=== PATIENT | male | born 1970 | race Caucasian/White ===

== ENCOUNTER 2017-01-22 16:42 | Inpatient (IN) | payer BC ==
--- NOTE | ~2017-01-22 | HP ---
History And Physical [address] [address] NAME: ALYSA DUONG : 74 STATUS : ADM IN [facility]#: [id number] AGE: 46 ADM/REG DATE : 01/22/17 MR#: [id number] REPORT SERV DATE: 01/23/17 DICTATED BY: DANICA RUIZ DATE: 01/22/17 REPORT STATUS : Draft TRANSCRIBED BY: MODL DATE: 01/22/17 DATE OF ADMISSION: 01/22/2017 CHIEF COMPLAINT: Sore throat, and chest pain. HISTORY OF PRESENT ILLNESS: This is a 46-year-old male patient, who came to the hospital at [facility] [place] with three days of sore throat, and he is getting weaker and he started having chest pain started this morning and he went to seek medical attention. He said he had a left-sided sternal pain like somebody was sitting there, it stayed all day long and eased off finally from the medication from the emergency room at the [facility]. He tried to do the nitroglycerin, it did not help. He states he was nauseated and it is not any more and also the pain start to go to the left arm and left jaw. He denies any aggravation or alleviating factors. That is the reason [facility] [place] transferred this patient to get further evaluation for the cardiac michel. According to the evaluation from the [facility], his BNP was 18. His x-ray was negative and his strep test was negative. Currently, he is not complaining any chest pain, and he is not having any palpitation or short of breath. He felt like a little tightness when he would take a deep breath. He denies any fever. His transfer was accepted by Dr. Mireles and I am taking care of this patient for the first visit H and P. REVIEW OF SYSTEMS: All systems reviewed and negative. PAST MEDICAL HISTORY: 1. Chronic pain management after the back surgery. The patient states he takes oxycodone 10 mg; however, his urine drug screen was negative. 2. Light heart attack in 2013 that was treated at the [facility]. He does not have enough detailed history about this event. He thinks he had a cardiac cath. 3. Broken vertebrae and spinal fusion. PAST SURGICAL HISTORY: Spinal fusion, three bones. SOCIAL HISTORY: Denies smoking history. Denies any alcohol use. 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 ALLERGIES: MORPHINE MADE HIM HALLUCINATION. HOME MEDICATIONS: 1. Lisinopril 20 mg once a day. 2. Oxycodone 10/325 mg four times a day. 3. Lyrica 200 mg twice a day. History And Physical [address] [address] NAME: ALYSA DUONG : 74 STATUS : ADM IN PAT#: [id number] AGE: 46 ADM/REG DATE : 01/22/17 MR#: [id number] REPORT SERV DATE: 01/23/17 DICTATED BY: DANICA RUIZ DATE: 01/22/17 REPORT STATUS : Draft TRANSCRIBED BY: RADHA DATE: 01/22/17 4. Flexeril 10 mg three times a day. 5. Nitroglycerin as needed. PHYSICAL EXAMINATION: VITAL SIGNS: Blood pressure 147/88, pulse was 94, temperature was 98, saturation was 96% on room air, and respiratory rate 20. GENERAL APPEARANCE: He is alert, awake, not in acute distress, male patient. HEENT: Pupils are equal, round, and reactive to light. EOM are intact. NECK: There is no jugular venous distention. No nodes palpable. LUNGS: Clear to auscultation. Has a normal respiratory effort. Has some rhonchi in upper lobes on both sides. CARDIOVASCULAR: No murmur, rub, or gallop. Has a regular rhythm and rate. ABDOMEN: Bowel sounds present and soft. There is no tenderness or rebound tenderness. EXTREMITIES: There is no pitting edema. LABORATORY DATA: Laboratory from the [facility] showed a sodium of 139, potassium 4.4, chloride 100, bicarb 29, BUN 12, creatinine 0.8, and glucose 127. WBC of 14.2, hemoglobin 14, hematocrit 42.5, and platelet is 255. Electrocardiogram from the [facility] showed normal sinus rhythm. Slightly tachycardic. ASSESSMENT AND PLAN: 1. Atypical chest pain. 2. Allergic rhinitis/reactive airway disease. 3. Chronic pain management. 4. Hypertension. We are going to obtain a nuclear stress test and then put him on the bronchodilator treatment, more likely the patient will have fast recovery from this hospitalization. WERO/RADHA Danica Ruiz M.D. / [id number] CC: Shashank Mireles Jr, MD
--- NOTE | ~2017-01-22 | DS ---
Discharge Summary [facility] [address] [place]. [address] NAME: ALYSA DUONG : 74 STATUS : DIS IN PAT#: [id number] AGE: 46 ADM/REG DATE : 01/22/17 MR#: [id number] REPORT SERV DATE: 01/26/17 DICTATED BY: PAM REZA DATE: 01/25/17 REPORT STATUS : Draft TRANSCRIBED BY: MODL DATE: 01/25/17 ADMISSION DATE: 01/22/2017 DISCHARGE DATE: 01/25/2017 DISCHARGE DIAGNOSES: 1. Noncardiac chest pain, improved. 2. Allergic rhinitis and reactive airway disease, improved. 3. Chronic pain. 4. Hypertension, metoprolol was added. CONSULTANTS: Shashank Anguiano M.D. PROCEDURE: Cardiac catheterization today was negative. HISTORY OF PRESENT ILLNESS: This is a 46-year-old male patient, who came to the hospital with chest pain. Please see dictated H and P. HOSPITAL COURSE: He was admitted to the hospital with chest pain, had evaluation. Initially, the patient was thought to have allergic rhinitis and later chest tightness. However, his second troponin went up to 0.1 from less than 0.02. Therefore, Cardiology was consulted and they decided to go to cardiac cath. He waited a cardiac cath for weekend. And did not have any other episodes anymore. His electrocardiogram has been in sinus rhythm, and biomarker troponins has been negative. He had a cardiac catheterization today. It did not show any significant obstructive disease. There was a normal coronary structure. Therefore, the patient will be discharged to home and continue hypertensive medication and going back to primary care physician's care. DISCHARGE MEDICATIONS: Same as home medication, but metoprolol was added on this admission for hypertension control. EKL/MODL Pam Reza M.D. / [id number] CC: Pam Reza M.D.
--- NOTE | ~2017-01-22 | CN ---
Consultation Report [facility] [address] [place]. [address] NAME: ALYSA HARDING : 74 STATUS : ADM IN [facility]#: [id number] AGE: 46 ADM/REG DATE : 01/22/17 MR#: [id number] REPORT SERV DATE: 01/25/17 DICTATED BY: SHASHANK KESSLER DATE: 01/23/17 REPORT STATUS : Draft TRANSCRIBED BY: MODCorie DATE: 01/23/17 CARDIOLOGY CONSULTATION DATE OF CONSULTATION: 01/23/2017 REASON FOR CONSULTATION: Chest pain. HISTORY OF PRESENT ILLNESS: Mr. Harding is a 46-year-old man with reported history of coronary atherosclerosis and chronic back pain as well as hypertension. He reports intermittent chest pain for many years. He reports an arteriogram several years ago at [place] suggesting a 40% lesion. He has had recurrent chest pain since that time with emergency room presentations. He presented to the [facility] with sore throat and chest pain. He was evaluated and treated there. They recommended admission, but [facility] was full, and he was sent here for evaluation. His chest pain is substernal, it is pressure type sensation. It was not improved with nitroglycerin. He has some associated nausea. His initial troponin was normal but has increased slightly. The family also reports a significant fatigue. He falls asleep easily, and based on history, has a high likelihood of having sleep apnea given regular snoring and stopping and breathing when he is sleeping. The review of systems is as per the history of present illness. Ten other systems are negative. PAST MEDICAL HISTORY: 1. Coronary atherosclerosis based on history with previous arteriogram with a 40% lesion in unknown vessel. 2. Chronic back pain with spinal fusion in the past. 3. Hypertension. FAMILY HISTORY: Positive for heart disease. SOCIAL HISTORY: The patient is disabled. No smoking tobacco but does chew tobacco. No alcohol. ALLERGIES: NO KNOWN DRUG ALLERGIES. HOME MEDICATIONS: Aspirin 81 daily, lisinopril 20 daily, nitroglycerin, Endocet, Lyrica. PHYSICAL EXAMINATION: VITAL SIGNS: Heart rate 77, blood pressure 114/58. GENERAL: The patient is a pleasant white male, in no apparent distress. HEENT: Conjunctivae are anicteric, no xanthelasma, lips without cyanosis. NECK: Supple, normal JVP, carotids +2 without bruit. LUNGS: Clear to auscultation bilaterally, no wheezes, rales or rhonchi. CARDIOVASCULAR: Regular rate and rhythm. Normal S1 and S2 without S3. No murmur or rub. Consultation Report [facility] [address] [place]. [address] NAME: ALYSA HARDING : 74 STATUS : ADM IN PAT#: [id number] AGE: 46 ADM/REG DATE : 01/22/17 MR#: [id number] REPORT SERV DATE: 01/25/17 DICTATED BY: SHASHANK KESSLER DATE: 01/23/17 REPORT STATUS : Draft TRANSCRIBED BY: MODL DATE: 01/23/17 PMI is nondisplaced. ABDOMEN: Soft, nontender, nondistended, with normal bowel sounds. No hepatomegaly. EXTREMITIES: No clubbing, cyanosis or edema. NEURO/PSYCH: Alert and oriented to person, place and time. No obvious neurologic deficits. Mood and affect normal. DATA: Troponin initially 0.02 increasing to 0.13, creatinine is normal. White blood cell count 14.2. EKG shows no acute changes. IMPRESSION: 1. Chest pain with mixed anginal features. 2. Reported history of coronary atherosclerosis. 3. Borderline elevated troponin. 4. Likely sleep apnea. 5. Hypertension. RECOMMENDATIONS: Mr. Harding presents with recurrent chest pain syndrome. My guess is that lot of his chest pain is noncardiac but it is hard to completely evaluate him based on his history. His troponins are mildly elevated, and I think given his history with recurrent chest pain and reported coronary atherosclerosis, an arteriogram is the best way to sort out his symptoms and to make sure he does not have a significant lesion or that this is unstable angina. We will proceed with that on Wednesday for evaluation. I think he certainly needs a sleep apnea evaluation given falling asleep easily and even while driving recently. WO/MODL Shashank Kessler M.D., Ph.D, F.A.C.C. / [id number] CC: Shashank Mireles Jr,
[2017-01-22] MEDS ORDERED: ENDOCET1 TA3 PO (18:31)
[2017-01-22] MEDS ORDERED: LYRICA200 MG PO (18:32)
[2017-01-22] MEDS ORDERED: PRIN20 PO (18:33)
[2017-01-22] MEDS ORDERED: NITROSTAT0.4 MG SL (18:34)
[2017-01-22] MEDS ORDERED: ASAB PO (18:34)
[2017-01-24 04:57] LABS: PROTIME (NOT ORD) 12.7 SEC (12.0-14.5)
[2017-01-24 05:05] LABS: BUN (BLOOD UREA NITROGEN) 17 MG/DL (6-23); CALCIUM, SERUM 8.6 MG/DL (8.5-10.4); CHLORIDE, SERUM 114 MMOL/L (96-112); CO2 (CARBON DIOXIDE) 25 MMOL/L (24-34); CREATININE 0.84 MG/DL (0.70-1.30); GFR AFRICAN AMERICAN 123 ML/MIN (>=60); GFR NON AFRICAN AMERICAN 106 ML/MIN (>=60); GLUCOSE, SERUM 170 MG/DL (60-99); POTASSIUM, SERUM 3.6 MMOL/L (3.5-5.3); SODIUM, SERUM 148 MMOL/L (135-148); TROPONIN I <0.02 NG/ML (<0.05)
[2017-01-25 06:30] LABS: BASOPHILS 0.4 %; BASOPHILS ABSOLUTE 0.05 10/3/uL (0.0-0.16); EOSINOPHILS 2.4 %; EOSINOPHILS ABSOLUTE 0.33 10/3/uL (0.0-0.53); HEMATOCRIT 41.5 % (40.0-51.0); HEMOGLOBIN 13.6 g/dL (13.6-17.8); IMMATURE GRANULOCYTES 1.7 %; IMMATURE GRANULOCYTES ABSOLUTE 0.23 10/3/uL (0.0-0.11); MEAN CORPUS HGB CONC 32.8 g/dL (32.0-36.0); MEAN CORPUSCULAR HEMOGLOB 28.6 pg (26.0-34.0); MEAN CORPUSCULAR VOLUME 87.2 fL (80-100); MONOCYTES ABSOLUTE 0.94 10/3/uL (0.21-1.20); NEUTROPHILS 54.5 %; NEUTROPHILS ABSOLUTE 7.37 10/3/uL (2.02-8.40); PLATELET COUNT 241 10/3/uL (150-400); RBC DISTRIBUTION WIDTH 14.4 % (12.0-16.0); RED CELL COUNT 4.76 10/6/uL (4.7-6.1); WHITE BLOOD CELLS 13.5 10/3/uL (4.5-10.5)
[2017-01-25 06:38] LABS: MANUAL DIFF NO %; PROTIME (NOT ORD) 13.3 SEC (12.0-14.5)
[2017-01-25 06:46] LABS: CALCIUM, SERUM 8.4 MG/DL (8.5-10.4); CHLORIDE, SERUM 111 MMOL/L (96-112); CHOL/HDL RATIO(NOT ORDER) 1.6 (0-5); CHOLESTEROL 118 MG/DL (< 200); CO2 (CARBON DIOXIDE) 27 MMOL/L (24-34); CREATININE 0.88 MG/DL (0.70-1.30); GFR AFRICAN AMERICAN 121 ML/MIN (>=60); GFR NON AFRICAN AMERICAN 104 ML/MIN (>=60); HDL CHOLESTEROL 72 MG/DL (> 39); LDL CHOLESTEROL 27 MG/DL (< 130); NON-HDL CHOLESTEROL 46 MG/DL (< 160); SODIUM, SERUM 146 MMOL/L (135-148); TRIGLYCERIDE 98 MG/DL (< 150)
[2017-01-25 06:48] LABS: BUN (BLOOD UREA NITROGEN) 13 MG/DL (6-23); GLUCOSE, SERUM 109 MG/DL (60-99); POTASSIUM, SERUM 3.9 MMOL/L (3.5-5.3)
[2017-01-25] MEDS ORDERED: FLONASE NAS (16:52)
[2017-01-25] MEDS ORDERED: LOP25 PO (16:53)
== END 2017-01-25 17:16 | disposition home or self-care (01) | DRG 287 ==
LOC: CDU2 16:42
PROVIDERS: Internal Medicine Cardiovascular Disease
PROC: 4A023N7 Measurement of Cardiac Sampling and Pressure, Left Heart, Percutaneous Approach (ICD-10-PCS; principal; 2017-01-22)
PROC: B2111ZZ Fluoroscopy of Multiple Coronary Arteries using Low Osmolar Contrast (ICD-10-PCS; 2017-01-22)
PROC: B2151ZZ Fluoroscopy of Left Heart using Low Osmolar Contrast (ICD-10-PCS; 2017-01-22)
DX: R07.89 Other chest pain (principal); I10 Essential (primary) hypertension; J45.909 Unspecified asthma, uncomplicated; G89.29 Other chronic pain; R00.0 Tachycardia, unspecified; F17.220 Nicotine dependence, chewing tobacco, uncomplicated; Z79.82 Long term (current) use of aspirin; Z88.5 Allergy status to narcotic agent; Z98.1 Arthrodesis status; Z82.49 Family history of ischemic heart disease and other diseases of the circulatory system
CPT/HCPCS: 71010; 80048; 80061; 83880; 84484; 85025; 85610; 93005; 93458; 94640; 99152; 99153; A9270-GY; C1769; C1887; C1894; J2250; J2930; J3010; Q9967